=== PATIENT | male | born 1990 | race African-American/Black ===

== ENCOUNTER → 2023-08-25 | Emergency (ER) | payer OTHER ==
[~2023-08-25] VITALS: Ht 172.7 cm; Wt 77.1 kg
[~2023-08-25] MED LIST: 0.9 % SODIUM CHLORIDE 500 ML IV ONE; FAMOTIDINE/PF 20 MG/2 ML VIAL IV ONE; KETOROLAC TROMETHAMINE 30 MG VIAL IV ONE; ONDANSETRON HCL 2 MG/ML VIAL IV ONE
== END | disposition left against medical advice (07) ==
LOC: ER 14:17
DX: R10.13 Epigastric pain (principal)